=== PATIENT | female | born 1985 | race Caucasian/White ===

== ENCOUNTER 2019-09-29 09:46 | Outpatient (CLI) | payer MEDICAID ==
[~2019-09-29 09:46] MED LIST: CITA40TA5 PO; OXYC-302 PO; PREN1TAB60 PO
[2019-09-29] MEDS ORDERED: CITA20TA6 PO (10:07)
[2019-09-29 10:48] LABS: BASOPHILS # (AUTO) 0.01 x10^3/uL (0-0.1); BASOPHILS % (AUTO) 0 % (0-1); EOSINOPHILS # (AUTO) 0.06 x10^3/uL (0-0.4); EOSINOPHILS % (AUTO) 1 % (1-7); LYMPHOCYTES % (AUTO) 44 % (22-44); MD NO; MEAN CORPUSCULAR HGB CONC 33.3 g/dL (32.4-35.8); MONOCYTES # (AUTO) 0.25 x10^3/uL (0.2-0.8); MONOCYTES % (AUTO) 6 % (2-9); NEUTROPHILS # (AUTO) 2.15 x10^3/uL (1.8-6.8); NEUTROPHILS % (AUTO) 49 % (42-75); PLATELET COUNT 190 x10^3/uL (130-400); RED BLOOD COUNT 4.85 x10^6/uL (3.82-5.3); RED CELL DISTRIBUTION WIDTH 12.8 % (9.6-15.2)
[2019-09-29 10:53] LABS: INTERNATIONAL NORMALIZED RATIO 0.99 (0.93-1.1); PROTHROMBIN TIME 10.5 Seconds (9.6-11.5)
[2019-09-29 17:41] LABS: ANION GAP 5 mmol/L (5-15); CHLORIDE 107 mmol/L (98-107); CREATININE 0.84 mg/dL (0.55-1.02)
== END 2019-09-29 23:59 | disposition home or self-care (01) ==
LOC: STAR 09:46
PROVIDERS: ATTEND Obstetrics & Gynecology Maternal & Fetal Medicine
DX: Z01.812 Encounter for preprocedural laboratory examination (principal); N92.0 Excessive and frequent menstruation with regular cycle; R32 Unspecified urinary incontinence; N81.10 Cystocele, unspecified
CPT/HCPCS: 36415; 80048; 84702; 85025; 85610; 85730

== ENCOUNTER 2019-10-07 10:58 | Observation (INO) | payer MEDICAID ==
[~2019-10-07] VITALS: Ht 165.1 cm; Wt 73.4 kg
[~2019-10-07 10:58] MED LIST changes: +CITA20TA6 PO
[2019-10-07] MEDS ORDERED: EPINEPHRINE 1 MG/ML, 1ML ONE (11:27)
[2019-10-07] MEDS ORDERED: FLUORESCEIN SODIUM 500 MG/5 ML ONE (11:27)
[2019-10-07] MEDS ORDERED: BUPIVACAINE/PF 0.25% ONE (11:27)
[2019-10-07] MEDS ORDERED: NEOSPORIN OINT. PKT 1 PACKET ONE (11:28)
[2019-10-07] MEDS ORDERED: APREPITANT 40 MG CAPSULE PO STA (11:35)
[2019-10-07] MEDS ORDERED: LACTATED RINGERS 1,000 ML IV SCH (11:45)
[2019-10-07 11:53] VITALS: BP 100/67
[2019-10-07] MEDS ORDERED: LIDOCAINE-MPF 1%, 2ML INFIL ONE (12:00)
[2019-10-07] MEDS ORDERED: GABAPENTIN 300 MG CAPSULE PO ONE (12:00)
[2019-10-07 12:09] LABS: HCG UR SG 1.024 (1.003-1.030)
[2019-10-07] MEDS ORDERED: MIDAZOLAM 1 MG/ML, 2ML ONE (12:31)
[2019-10-07] MEDS ORDERED: DESMOPRESSIN IVPB ONE (12:31)
[2019-10-07] MEDS ORDERED: FENTANYL PF 250 MCG/5ML ONE (12:31)
[2019-10-07] MEDS ORDERED: SODIUM CHLORIDE 0.9% IVPB ONE (12:31)
[2019-10-07] MEDS ORDERED: ROCURONIUM 10MG/ML,5ML ONE (12:43)
[2019-10-07] MEDS ORDERED: DEXAMETHASONE 4 MG/ML, 1ML ONE (12:43)
[2019-10-07] MEDS ORDERED: PROPOFOL 10 MG/ML, 20ML ONE (12:43)
[2019-10-07] MEDS ORDERED: ONDANSETRON 2MG/ML, 2ML ONE (12:43)
[2019-10-07] MEDS ORDERED: CEFOTETAN 2 GM ONE (12:43)
[2019-10-07] MEDS ORDERED: NEOMY/POLYMYXIN B GU IRR. 1 ML ONE (13:42)
[2019-10-07] MEDS ORDERED: MANNITOL PMX 20% [20 GM/100 ML] 500ML ONE (14:00)
[2019-10-07] MEDS ORDERED: MANNITOL PMX 20% 0 ML ONE (14:11)
[2019-10-07] MEDS: D5%-LACTATED RINGERS 1,000 ML IV SCH ×2 (14:11→22:11)
[2019-10-07] MEDS ORDERED: KETOROLAC 30 MG/1 ML IVPush PRN (14:30)
[2019-10-07] MEDS ORDERED: MEPERIDINE/PF 25MG/ML,1ML IVPush PRN (14:30)
[2019-10-07] MEDS ORDERED: hydrALAzine 20 MG/ML, 1ML IV PRN (14:30)
[2019-10-07] MEDS ORDERED: HALOPERIDOL 5 MG/ML IV PRN (14:30)
[2019-10-07] MEDS ORDERED: HYDROmorphone 2 MG/ML, 1ML IVPush PRN (14:30)
[2019-10-07] MEDS ORDERED: morphine SULFATE 10 MG/ML, 1ML IVPush PRN (14:30)
[2019-10-07] MEDS ORDERED: METHOCARBAMOL 1,000 MG in DEXTROSE 5% 100 ML IV PRN (14:30)
[2019-10-07] MEDS ORDERED: ONDANSETRON 2MG/ML, 2ML IVPush PRN (14:30)
[2019-10-07] MEDS ORDERED: OXYcodone 5 MG/5 ML ORAL.SOL UDC PO PRN (14:30)
[2019-10-07] MEDS ORDERED: ACETAMINOPHEN 325 MG TABLET PO PRN (14:30)
[2019-10-07] MEDS ORDERED: OXYcodone 5 MG/5 ML ORAL.SOL UDC ONE ×2 (15:11→15:21)
[2019-10-07] MEDS ORDERED: FENTANYL PF 100 MCG/2ML ONE (15:20)
[2019-10-07] MEDS: FENTANYL PF 100 MCG/2ML IV PRN ×2 (15:22→15:27)
[2019-10-07] MEDS: SIMETHICONE 80 MG CHEW TAB PO SCH ×2 (16:00→20:56)
[2019-10-07] MEDS: OXYcodone/APAP 5/325MG TABLET PO PRN (20:10)
[2019-10-07 21:51] VITALS: BP 94/53
[2019-10-08 00:10] VITALS: BP 96/60
[2019-10-08] MEDS: OXYcodone/APAP 5/325MG TABLET PO PRN ×6 (00:18→14:19)
[2019-10-08] MEDS: D5%-LACTATED RINGERS 1,000 ML IV SCH (04:30)
[2019-10-08 06:46] VITALS: BP 106/56
[2019-10-08] MEDS: SIMETHICONE 80 MG CHEW TAB PO SCH (08:29)
[2019-10-08 14:25] VITALS: BP 108/71
[2019-10-08] MEDS ORDERED: OXYC-302 PO (14:42)
== END 2019-10-08 15:26 | disposition home or self-care (01) ==
LOC: OUT 10:58 → 4NE 17:58 → OUT 22:41 → 4NE 22:42 → DCLOUNGE 10-08 15:09
PROVIDERS: ADMIT Obstetrics & Gynecology Maternal & Fetal Medicine; ATTEND Obstetrics & Gynecology Maternal & Fetal Medicine
DX: N92.1 Excessive and frequent menstruation with irregular cycle (principal); N39.3 Stress incontinence (female) (male); N81.0 Urethrocele; F32.9 Major depressive disorder, single episode, unspecified; D68.0 Von Willebrand disease
CPT/HCPCS: 36415; 57288; 58550; 81025; 85014; 85018; 86850; 86900; 88307; 96374; C1771; G0378; J0171; J1100; J2250; J2405; J2704; J2800; J3010; J3490; J7120; J8501

== ENCOUNTER 2019-10-09 09:06 | Emergency (ER) | payer MEDICAID ==
[~2019-10-09] VITALS: Ht 165.1 cm; Wt 78.0 kg
--- NOTE | 2019-10-09 09:44 | NUR ---
FIRST CONTACT WITH PT. PT STATES "I HAD A HYSTERECTOMY SASHA AND GOT D/C YESTERDAY. I'VE BEEN THROWING UP SINCE LAST NIGHT. I'M VERY NAUSEOUS." PT C/O N/V/BLOATING. PT'S AOX4. RESPS EVEN AND UNLABORED. BP/SPO2 MONITORS IN PLACE. CALL LIGHT WITHIN REACH.
[2019-10-09] MEDS ORDERED: ONDANSETRON 2MG/ML, 2ML ONE (09:49)
[2019-10-09] MEDS ORDERED: SODIUM CHLORIDE 0.9% 1,000ML IVBOLUS ONE (10:00)
[2019-10-09] MEDS ORDERED: ONDANSETRON 2MG/ML, 2ML IVPush ONE (10:00)
[2019-10-09] MEDS ORDERED: SODIUM CHLORIDE 0.9% 1,000 ML IV ONE (10:00)
[2019-10-09 10:04] LABS: BASOPHILS # (AUTO) 0.01 x10^3/uL (0-0.1); BASOPHILS % (AUTO) 0 % (0-1); EOSINOPHILS % (AUTO) 0 % (1-7); LYMPHOCYTES # (AUTO) 0.72 x10^3/uL (1-3.4); LYMPHOCYTES % (AUTO) 10 % (22-44); MD NO; MEAN CORPUSCULAR HEMOGLOBIN 29.1 pg (27.0-34.8); MEAN CORPUSCULAR HGB CONC 33.2 g/dL (32.4-35.8); MEAN CORPUSCULAR VOLUME 87.7 fL (80-100); MEAN PLATELET VOLUME 7.9 fL (7.4-10.4); MONOCYTES # (AUTO) 0.31 x10^3/uL (0.2-0.8); MONOCYTES % (AUTO) 4 % (2-9); NEUTROPHILS # (AUTO) 6.47 x10^3/uL (1.8-6.8); NEUTROPHILS % (AUTO) 86 % (42-75); PLATELET COUNT 199 x10^3/uL (130-400); RED BLOOD COUNT 4.03 x10^6/uL (3.82-5.3); RED CELL DISTRIBUTION WIDTH 13.4 % (9.6-15.2)
--- NOTE | 2019-10-09 10:06 | NUR ---
PT MEDICATED PER EMAR. PT TOLERATED WELL. NS INFUSING AT THIS TIME.
[2019-10-09 10:15] LABS: ALBUMIN 3.3 g/dL (3.4-5.0); ANION GAP 4 mmol/L (5-15); CALCIUM 8.3 mg/dL (8.5-10.1); CHLORIDE 111 mmol/L (98-107); CREATININE 0.65 mg/dL (0.55-1.02)
--- NOTE | 2019-10-09 10:34 | NUR ---
PT AMB TO BR WITH STEADY GAIT.
--- NOTE | 2019-10-09 10:39 | NUR ---
WATER PROVIDED AT THIS TIME.
[2019-10-09] MEDS ORDERED: SODIUM CHLORIDE FLUSH 10ML SYR IVF ONE (11:00)
--- NOTE | 2019-10-09 11:25 | NUR ---
pt concerned about uti. edmd notified. pt amb to br and provided ua sample. ua sent.
[2019-10-09 11:28] VITALS: BP 122/58
[2019-10-09 11:47] LABS: MICROSCOPIC AUTO
[2019-10-09 11:48] LABS: CULTURE INDICATED? NO
== END 2019-10-09 12:11 | disposition home or self-care (01) ==
LOC: ED 10:41
DX: R11.2 Nausea with vomiting, unspecified (principal); R51 Headache; Z90.710 Acquired absence of both cervix and uterus
CPT/HCPCS: 36415; 80048; 81001; 82040; 85025; 96361; 96374; 99283; J2405; J7030